=== PATIENT | female | born 1975 | race African-American/Black ===

== ENCOUNTER → 2018-04-29 11:16 | Outpatient (CLI) | payer OTHER, SELFPAY ==
[2018-04-29 14:13] LABS: Cancer Antigen 125 9 U/mL (0-35)
== END ==
PROVIDERS: PCP Obstetrics & Gynecology; Visit Provider Obstetrics & Gynecology
DX: N83.9 Noninflammatory disorder of ovary, fallopian tube and broad ligament, unspecified (principal)
CPT/HCPCS: 36415; 86304

== ENCOUNTER → 2018-05-11 16:34 | Outpatient (CLI) | payer OTHER, SELFPAY | PROVIDERS: PCP Obstetrics & Gynecology; Visit Provider Obstetrics & Gynecology | DX: N83.9 Noninflammatory disorder of ovary, fallopian tube and broad ligament, unspecified (principal) ==

== ENCOUNTER → 2018-05-24 16:49 | Outpatient (CLI) | payer OTHER, SELFPAY ==
[2018-05-27 15:52] LABS: Human HE4 Antigen 36 pmol/L
== END ==
PROVIDERS: PCP Obstetrics & Gynecology; Visit Provider Obstetrics & Gynecology
DX: N83.9 Noninflammatory disorder of ovary, fallopian tube and broad ligament, unspecified (principal)
CPT/HCPCS: 36415; 86305

== ENCOUNTER 2018-05-31 06:44 | Day surgery (SDC) | payer OTHER, SELFPAY ==
[2018-05-24 13:21] VITALS: BMI 29.5
[2018-05-31] VITALS (9 sets, daily range): BP systolic 105–116; BP diastolic 70–81; PULSE 67–77; RESP 14–22; TEMP 36.3–36.6; O2SAT 93–100; BMI 29.5
--- NOTE | 2018-05-31 | PATH_ITS ---
[facility] Accession Number: [id number] . 01 Material submitted: . BILATERAL OVARIAN BIOPSIES . 02 Diagnosis: Bilateral Ovaries, Biopsies: Mesothelial lined fibroconnective tissue, suggestive of simple benign cysts. No ovarian tissue identified. Negative for malignancy. MRV/06/03/2018 . 02 Comment: The overall findings are most suggestive of simple benign cysts. There is no evidence of endometriosis or any other findings to explain the intraoperative finding of bilateral ovarian adhesions. There is no ovarian tissue present, and there is no evidence of malignancy. . As part of routine quality engineer, Dr. Torres has reviewed this case and agrees with the above diagnosis. . 02 Electronically signed: . Victoriano Peter MD, PhD, Pathologist NPI- [id number] . 01 Gross description: . Received in formalin, labeled 1. Bilateral ovarian biopsy, are multiple fragments of cline-zhong rubbery tissue (1.2 x 0.5 x 0.2 cm in aggregate). Entirely submitted in cassette A1. ([id number]) /MRV . 02 Microscopic: . Sections are of fragments of fine strips of fibroconnective tissue with a simple cuboidal lining, consistent with simple benign cysts. To further evaluate the lining, a limited panel of immunohistochemical stains is performed (each with an appropriately positive control). The epithelioid cells are strongly and diffusely positive for calretinin and moderately diffusely positive for PAX8 immunoreactivity. The morphology and immunophenotype are consistent with a simple mesothelial lined cyst. There is no evidence of malignancy. No ovarian tissue is present. . * This test was developed and its performance characteristics determined by [facility]. It has not been cleared or approved by the U.S. Food and Drug Administration. The FDA has determined that such clearance or approval is not necessary. This test is used for clinical purposes. It should not be regarded as investigational or for research. . 02 Pathologist provided ICD-10: K66.0 . 02 CPT . 882542, R59193, Z20469 Performed at: 01 [facility] [address] [id number] MD Karthik Lomax MD Phone: [phone] Performed at: 02 [facility] [address] [place] [id number] MD Reginald Serna MD Phone: [phone]
[2018-05-31] MEDS: LACTATED RINGERS 1,000 ML 100 ML IV ×2 (07:35→10:25)
--- NOTE | 2018-05-31 07:52 | PM.PREOP ---
Pre-operative Note Interval Note Pre-op Check: History & Physical Reviewed by Physician
[2018-05-31] MEDS: CEFAZOLIN 2 GM/100 ML FROZ.PIGGY IV (08:11)
[2018-05-31] MEDS: BUPIVACAINE 0.5% W/ EPI (PF) 30 ML VIAL INJ (08:50)
--- NOTE | 2018-05-31 09:55 | PM.GYNOP.1 ---
Operative Date/Time/Diagnoses Date of procedure: 05/31/18 Time of procedure: 09:55 Pre-op diagnosis: Complex right ovarian mass Post-op diagnosis: same Procedure: Procedures Operation Date: 05/31/18 07:45 Actual Procedures Side Surgeon p Laparoscopic lysis of adhesions, bilateral ovarian biopsies Right Marzena Swanson MD Indications: Complex right ovarian mass Surgeon: Marzena Swanson Log Driver: [place] [facility] Anesthesia Type: General Operative Notes Findings: 8 week size anteverted uterus. Adhesions between the posterior cul-de-sac and the uterus. Adhesions of both ovarian fossa Wevv-Gqmj-Vmzgpmv of the liver Normal appendix Normal gallbladder Omental to anterior abdominal wall adhesions Mucinous globules around both ovaries. Closure Type: primary Specimen(s): other (Bilateral ovarian biopsies) Estimated blood loss (mL): 5 Blood products transfused: none Procedure in detail: The patient was taken to the operating room where she was placed in the dorsal supine position. After adequate general tracheal anesthesia was achieved, she was placed in the dorsal lithotomy position, and prepped and draped in the usual sterile fashion. A time-out was performed. A bivalve speculum was placed into the vagina and the anterior lip of the cervix grasped with a single-tooth tenaculum. The cervical os was sequentially dilated until the Zumi uterine manipulator could pass easily into the endometrial cavity. The single-tooth tenaculum was removed from the anterior lip of the cervix. The bivalve speculum was removed from the vagina. Attention was then turned to the abdomen where 6 cc of 0.5% Marcaine with epinephrine were injected in the umbilical fold. A 5 mm incision was made. The Veress needle was placed into the peritoneal cavity, and its placement confirmed by aspiration drop test. The abdominal cavity was insufflated with 4.2 L of CO2. The Veress needle was removed, and a 5 mm trocar was placed without difficulty. Initial inspection of the pelvis and abdomen revealed the findings noted above. 3 other incisions were made, 1 above the pubic symphysis, 2 others midway between the pubic symphysis and umbilicus, 4 cm lateral to the midline. 3 other 5 mm trocars were placed under direct visualization. Using the PlasmaKinetic, the omental adhesions were taken down off of the anterior abdominal wall for visualization. Several of the mucinous globules were grasped and using the Endo Mirna were excised and sent for biopsy. The Endo mirna with cautery were used to remove the adhesions between the posterior cul de sac in the uterus. The Thunder Beat was used to take down the adhesions between the liver and the diaphragm. The appendix was visualized and was normal. Other than the mucinous globulus surrounding the ovaries the ovaries appeared normal. They were freed from the ovarian fossa using the Endo Mrina. Hemostasis was achieved. The pelvis was copiously irrigated with warm normal saline. There was no bleeding noted. The instruments were removed from the abdomen. The CO2 was allowed to escape. The incisions were repaired with 4 0 Vicryl in a subcuticular fashion. Steri-Strips, 2 x 2 was, and op site were placed. The Zumi uterine manipulator was removed from the uterus. Sponge, lap, and instrument counts were correct x2. The patient tolerated the procedure well, and was taken to PACU in stable condition. Complications: none Post-operative Condition: stable Disposition: PACU Plan for aftercare: To PACU, then home after recovery
--- NOTE | 2018-05-31 09:59 | P.OP_ITS ---
Operative Date/Time/Diagnoses Date of procedure: 05/31/18 Time of procedure: 09:55 Pre-op diagnosis: Complex right ovarian mass Post-op diagnosis: same Procedure: Procedures Operation Date: 05/31/18 07:45 Actual Procedures Side Surgeon p Laparoscopic lysis of adhesions, bilateral ovarian biopsies Right Marzena Swanson MD Indications: Complex right ovarian mass Surgeon: Marzena Swanson Inspector Sheet Metal Parts: [place] [facility] Anesthesia Type: General Operative Notes Findings: 8 week size anteverted uterus. Adhesions between the posterior cul-de-sac and the uterus. Adhesions of both ovarian fossa Dgms-Xiwz-Vextmjp of the liver Normal appendix Normal gallbladder Omental to anterior abdominal wall adhesions Mucinous globules around both ovaries. Closure Type: primary Specimen(s): other (Bilateral ovarian biopsies) Estimated blood loss (mL): 5 Blood products transfused: none Procedure in detail: The patient was taken to the operating room where she was placed in the dorsal supine position. After adequate general tracheal anesthesia was achieved, she was placed in the dorsal lithotomy position, and prepped and draped in the usual sterile fashion. A time-out was performed. A bivalve speculum was placed into the vagina and the anterior lip of the cervix grasped with a single-tooth tenaculum. The cervical os was sequentially dilated until the Zumi uterine manipulator could pass easily into the endometrial cavity. The single-tooth tenaculum was removed from the anterior lip of the cervix. The bivalve speculum was removed from the vagina. Attention was then turned to the abdomen where 6 cc of 0.5% Marcaine with epinephrine were injected in the umbilical fold. A 5 mm incision was made. The Veress needle was placed into the peritoneal cavity, and its placement confirmed by aspiration drop test. The abdominal cavity was insufflated with 4.2 L of CO2. The Veress needle was removed, and a 5 mm trocar was placed without difficulty. Initial inspection of the pelvis and abdomen revealed the findings noted above. 3 other incisions were made, 1 above the pubic symphysis , 2 others midway between the pubic symphysis and umbilicus, 4 cm lateral to the midline. 3 other 5 mm trocars were placed under direct visualization. Using the PlasmaKinetic, the omental adhesions were taken down off of the anterior abdominal wall for visualization. Several of the mucinous globules were grasped and using the Endo Mirna were excised and sent for biopsy. The Endo mirna with cautery were used to remove the adhesions between the posterior cul de sac in the uterus. The Thunder Beat was used to take down the adhesions between the liver and the diaphragm. The appendix was visualized and was normal. Other than the mucinous globulus surrounding the ovaries the ovaries appeared normal. They were freed from the ovarian fossa using the Endo Mirna. Hemostasis was achieved. The pelvis was copiously irrigated with warm normal saline. There was no bleeding noted. The instruments were removed from the abdomen. The CO2 was allowed to escape. The incisions were repaired with 4 0 Vicryl in a subcuticular fashion. Steri-Strips, 2 x 2 was, and op site were placed. The Zumi uterine manipulator was removed from the uterus. Sponge , lap, and instrument counts were correct x2. The patient tolerated the procedure well, and was taken to PACU in stable condition. Complications: none Post-operative Condition: stable Disposition: PACU Plan for aftercare: To PACU, then home after recovery
[2018-05-31] MEDS: HYDROMORPHONE 2 MG INJ 0.5 MG IV ×2 (10:15→10:20)
[2018-05-31] MEDS: HYDROCODONE/ACET 5/325 TABLET 2 TAB PO (10:27)
== END 2018-05-31 11:40 | disposition home or self-care (01) ==
PROVIDERS: Family Provider Obstetrics & Gynecology; PCP Obstetrics & Gynecology; Visit Provider Obstetrics & Gynecology
PROC: (CPT 58662; principal; 2018-05-31 07:45)
DX: K66.0 Peritoneal adhesions (postprocedural) (postinfection) (principal)
CPT/HCPCS: 49321; 58660; J0690; J1100; J1170; J1885; J2250; J2405; J2704; J3010

== ENCOUNTER 2018-10-18 07:27 | Emergency (ER) | payer OTHER, SELFPAY ==
[2018-10-18 07:35] VITALS: BP 113/66; PULSE 80; RESP 19; TEMP 36.9; O2SAT 100; BMI 31.7
--- NOTE | 2018-10-18 08:00 | DI.RAD.S_ITS ---
PROCEDURE: XR CHEST 2V INDICATIONS: chest pain TECHNIQUE: 2 views of the chest were acquired. COMPARISON: None. FINDINGS: Surgical changes and devices: None. Lungs and pleura: No pleural effusions or pneumothorax. Lungs are clear. Mediastinum: Mediastinal contours are normal. Heart size is normal. Bones and chest wall: No suspicious bony abnormalities. Soft tissues appear unremarkable. IMPRESSION: No acute cardiopulmonary findings. Dictated by: Marcy Mccain M.D. on 10/18/2018 at 8:25 Approved by: Marcy Mccain M.D. on 10/18/2018 at 8:25
[2018-10-18 08:10] LABS: Add Manual Diff / Slide Review NO; Basophils Percent Auto 0.6 % (0-2); D Dimer 246 ng/mL (<230); Hematocrit 35.9 % (36-46); Hemoglobin 12.2 g/dL (12.0-16.0); Lymphocytes Percent Auto 31.2 % (25-40); Mean Corpuscular HGB Conc 33.9 % (30-36); Mean Corpuscular Hemoglobin 27.2 PG (26-34); Mean Corpuscular Volume 80.3 fL (80-100); Monocytes Percent Auto 4.3 % (3-14); Neutrophils Absolute Auto 3900 /uL (3000-5900); Neutrophils Percent Auto 62.9 % (50-75); Platelet Count 279 X10^3/uL (150-400); Red Blood Cell Count 4.47 X10^6/uL (4.0-5.2); Red Cell Distribution Width 15.9 % (11.6-14.8); White Blood Cell Count 6.2 X10^3/uL (4.5-11.0)
--- NOTE | 2018-10-18 08:11 | ED_ITS ---
HPI - Chest Pain General Chief Complaint: Chest Pain Stated Complaint: chest pains Time Seen by Provider: 10/18/18 07:35 Source: patient Mode of arrival: ambulatory Limitations: no limitations History of Present Illness HPI narrative: Patient is a 42-year-old female who presents with a chest discomfort ongoing for last 5-6 days. She says it is constant in nature and occasionally feels a sharp stabs. It is on the left side. She denies any shortness of breath no cough no pain with arm movement. He has never had anything like this before. She does have significant family history all of her aunts and grandmother have had heart attacks in the past. She denies any recent travel on an airplane no control MD complaint: chest pain Related Data Home Medications Medication Instructions Recorded Confirmed albuterol sulfate [ProAir HFA] 2 puff INHALATION Q4-6H PRN 10/18/18 10/18/18 Allergies Allergy/AdvReac Type Severity Reaction Status Date / Time Iodinated Contrast- Oral and AdvReac Mild HIVES Verified 10/18/18 07:35 IV Dye SWELLING Review of Systems Review of Systems All systems reviewed & are unremarkable except as noted in HPI and below Constitutional Denies chills, Denies fever(s), Denies lethargy and Denies weakness Eyes Denies change in vision, Denies eye discharge, Denies irritation and Denies loss of vision Cardiovascular Reports as per HPI, Denies dyspnea and Denies dyspnea on exertion Respiratory Denies cough, Denies dyspnea, Denies dyspnea on exertion and Denies wheezing Gastrointestinal Gastrointestinal: Denies abdominal pain, Denies change in bowel habits, Denies diarrhea, Denies nausea and Denies vomiting Musculoskeletal Denies back pain, Denies muscle weakness, Denies numbness and Denies tingling Integumentary/Breasts Denies pruritus, Denies erythema, Denies rash and Denies wounds Neurologic Denies loss of vision, Denies numbness, Denies tingling and Denies weakness Allergic/Immunologic Denies wheezing [facility] Medical History Ovarian mass, right (Acute) Abnormal Pap smear of cervix (Chronic ~2001) Alopecia (Chronic ~2012) Asthma (Chronic ~2012) Fractures (Chronic) Irregular menstrual cycle (Chronic ~2013) Irritable bowel syndrome (Chronic ~2005) Migraines (Chronic ~2005) Ovarian cyst (Chronic ~2003) Painful menstrual periods (Chronic ~1991) Rheumatoid arthritis (Chronic ~2007) Scoliosis (Chronic) Chicken pox (Resolved ~1993) Surgical History Anesthesia (Resolved) delivery delivered (Resolved ~10/20/97) delivery delivered (Resolved ~01/24/05) History of hand surgery (Resolved ~2017) History of knee surgery (Resolved ~2003) Family History Father Seizure Diabetes mellitus Hypertension Stroke Mother Hypertension Sister Diabetes mellitus Social History household members: spouse Smoking Status: Never smoker Exam Initial Vital Signs Initial Vital Signs: Vital Signs Temperature 98.4 F 10/18/18 07:35 Pulse Rate 80 10/18/18 07:35 Respiratory Rate 19 10/18/18 07:35 Blood Pressure 113/66 10/18/18 07:35 Pulse Oximetry 100 10/18/18 07:35 GENERAL: Well-appearing, well-nourished and in no acute distress. HEENT: Head atraumatic,EOMI, pupils reactive, face symmetric, no JVD neck is supple CARDIOVASCULAR: Regular rate and rhythm without murmurs, rubs or gallops. RESPIRATORY: Breath sounds equal bilaterally, no wheezes rales or rhonchi. ABDOMEN: Soft, nontender. Normoactive bowel sounds all 4 quadrants. No guarding or rebound. EXTREMITIES: Normal range of motion, no clubbing or edema. Neurovascularly intact NEUROLOGICAL: Alert and oriented x4.Normal gait and speech. Cranial nerves II through XII grossly intact. SKIN: Warm, dry, no laceration, no petechiae, no rashes or lesions. Scores PERC Score Age greater than or equal to 50 years: No Heart rate greater than or equal to 100 bpm: No Room Air O2 Sat less than 95%: No Unilateral leg swelling: No Recent trauma or surgery: No Hemoptysis: No Prior PE or DVT: No Hormone Use: No Total PERC Score: 0 Course Orders Ordered: Discontinued Medications Aspirin (Aspirin Chew) 324 mg PO NOW ONE Stop: 10/18/18 07:59 Last Admin: 10/18/18 08:31 Dose: 324 mg Nitroglycerin (Nitrostat) 0.4 mg SL NOW ONE Stop: 10/18/18 09:17 Last Admin: 10/18/18 09:59 Dose: Not Given Ondansetron HCl (Zofran) 4 mg IV NOW ONE Stop: 10/18/18 09:49 Last Admin: 10/18/18 09:49 Dose: 4 mg Pantoprazole Sodium (Protonix) 40 mg IV NOW ONE Stop: 10/18/18 09:17 Last Admin: 10/18/18 09:43 Dose: 40 mg Vital Signs - 8 hr 10/18/18 07:35 10/18/18 10:00 Temperature 98.4 F Pulse Rate 80 67 Respiratory Rate 19 16 Blood Pressure 113/66 Blood Pressure [Right Arm] 122/70 Pulse Oximetry 100 100 MDM - Chest Pain Lab Data Attestation: I reviewed the patient's lab results. Result diagrams: 10/18/18 07:15 10/18/18 07:15 Lab Results 10/18/18 10/18/18 10/18/18 Range/Units 07:15 07:15 07:15 WBC 6.2 (4.5-11.0) X10^3/uL RBC 4.47 (4.0-5.2) X10^6/uL Hgb 12.2 (12.0-16.0) g/dL Hct 35.9 L (36-46) % MCV 80.3 (80-100) fL MCH 27.2 (26-34) PG MCHC 33.9 (30-36) % RDW 15.9 H (11.6-14.8) % Plt Count 279 (150-400) X10^3/uL Neut % (Auto) 62.9 (50-75) % Lymph % (Auto) 31.2 (25-40) % [place] % (Auto) 4.3 (3-14) % Eos % (Auto) 1.0 L (2-4) % Baso % (Auto) 0.6 (0-2) % Neut # (Auto) 3900 (4950-2874) /uL D-Dimer 246 H (<230) ng/mL Sodium 140 (137-145) mmol/L Potassium 4.2 (3.4-5.1) mmol/L Chloride 105 (98-107) mmol/L Carbon Dioxide 24 (22-32) mmol/L BUN 10 (7-17) mg/dL Creatinine 0.70 (0.52-1.04) mg/dL Estimated GFR > 60.0 (>60) mL/min BUN/Creatinine Ratio 14.3 (6-22) Glucose 99 (70-100) mg/dL Calcium 9.0 (8.4-10.2) mg/dL Total Bilirubin 0.7 (0.2-1.3) mg/dL AST 17 (14-36) IU/L ALT 20 (9-52) IU/L Alkaline Phosphatase 64 (38-126) U/L Total Creatine Kinase 60 (30-135) U/L CK-MB (CK-2) TNP CK-MB (CK-2) Rel Index TNP Troponin I < 0.012 (0.01-0.034) ng/mL Total Protein 7.4 (6.3-8.2) g/dL Albumin 4.1 (3.5-5.0) g/dL Globulin 3.3 (1.7-4.1) g/dL Albumin/Globulin Ratio 1.2 (1.0-2.8) Lipase 71 (23-300) U/L Imaging Data Chest x-ray: Radiologist's impression: PROCEDURE: XR CHEST 2V INDICATIONS: chest pain TECHNIQUE: 2 views of the chest were acquired. COMPARISON: None. FINDINGS: Surgical changes and devices: None. Lungs and pleura: No pleural effusions or pneumothorax. Lungs are clear. Mediastinum: Mediastinal contours are normal. Heart size is normal. Bones and chest wall: No suspicious bony abnormalities. Soft tissues appear unremarkable. IMPRESSION: No acute cardiopulmonary findings. Dictated by: Marcy Mccain M.D. on 10/18/2018 at 8:25 ECG Data Attestation: I personally reviewed and interpreted this ECG as follows: Prior ECG tracings: not available for review Interpretation: EKG 1.: Sinus rhythm artifact noted rate [address] changes no priors to compare EKG 2.: Normal sinus rhythm rate [address] changes no T-wave inversions MDM Narrative Medical decision making narrative: Patient continues to have some chest discomfort. Low risk for PE. EKG and cardiac enzymes are negative. She does have family history as a risk factor. I recommend that she have an outpatient stress test. However at this time no need for hospitalization. Signs and symptoms actually are not consistent with cardiac pain. She has fairly constant dull ache with occasional sharp stabbing pain which lasts briefly about 1 sec. Discharge Plan Departure Patient Disposition: Home Clinical Impression: Atypical chest pain, Heart palpitations Discharge Date/Time: 10/18/18 10:49 Interventions: ED Discharge Assessment Last Done: 10/18/18 10:48 Instructions: DI for Atypical Chest Pain Activity Restrictions/Additional Instructions: *You have been diagnosed with atypical chest pain, heart palpitations *What to do: You should still have a stress test, based on your family history. However not indicated to stay in the hospital at this time *Continue to take medications as directed -aspirin 81 mg daily *Follow up with your primary care provider in 2-3 days *Return to ER if you should have worsening or changing chest pain, shortness of breath or any new, worsening or concerning symptoms Prescriptions: No Action albuterol sulfate [ProAir HFA] 90 mcg/actuation HFA aerosol inhaler 2 puff Inhalation Q4-6H PRN (Reason: Shortness Of Breath) RF: 0 Referrals: Rajesh Appiah MD [Physician] - Isaac Packer MD [Physician] - Lakesha Fowler MD [Physician] - Uzma London DO [Physician] -
[2018-10-18 08:13] LABS: Alanine Aminotransferase 20 IU/L (9-52); Albumin 4.1 g/dL (3.5-5.0); Albumin Globulin Ratio 1.2 (1.0-2.8); Alkaline Phosphatase 64 U/L (38-126); Aspartate Aminotransferase 17 IU/L (14-36); BUN Creatinine Ratio 14.3 (6-22); Bilirubin Total 0.7 mg/dL (0.2-1.3); Blood Urea Nitrogen 10 mg/dL (7-17); Carbon Dioxide 24 mmol/L (22-32); Chloride 105 mmol/L (98-107); Creatine Kinase 60 U/L (30-135); Estimated Glomerular Filt Rate > 60.0 mL/min (>60); Globulin 3.3 g/dL (1.7-4.1); Glucose 99 mg/dL (70-100); HEMOLYSIS < 15 (0-50); Lipase 71 U/L (23-300); Potassium 4.2 mmol/L (3.4-5.1); Sodium 140 mmol/L (137-145); Total Protein 7.4 g/dL (6.3-8.2)
[2018-10-18 08:24] LABS: Troponin I < 0.012 ng/mL (0.01-0.034)
[2018-10-18] MEDS: ASPIRIN 81 MG TAB 324 MG PO (08:31)
[2018-10-18] MEDS: PANTOPRAZOLE 40 MG VIAL IV (09:43)
[2018-10-18] MEDS: ONDANSETRON 4 MG/2 ML INJ IV (09:49)
[2018-10-18 10:00] VITALS: BP 122/70; PULSE 67; RESP 16; O2SAT 100
[2018-10-18 10:48] VITALS: BP 100/62; PULSE 72; RESP 21; O2SAT 100
== END 2018-10-18 10:49 | disposition home or self-care (01) ==
PROVIDERS: Emergency Provider Emergency Medicine
DX: R07.89 Other chest pain (principal); R00.2 Palpitations
CPT/HCPCS: 36591; 71046; 80053; 82550; 83690; 84484; 85025; 85379; 93005; 96374; 96375; 99283; 99285; C9113; J2405